=== PATIENT | male | born 1940 | race Caucasian/White ===

== ENCOUNTER → 2018-06-18 | Outpatient (CLI) | payer MEDICARE, BC ==
--- NOTE | 2018-06-20 14:26 | PCVCIMAG ---
APPROVED REPORT Study performed: 06/18/2018 15:01:59 EXAM: Comprehensive 2D, Doppler, and color-flow Echocardiogram Patient Location: Echo lab Status: routine BSA: 2.13 HR: 54 bpmBP: 128/70 mmHg Rhythm: First Degree AV Block Other Information Study Quality: Good Risk Factors: Cardiac Risk Factors: Hyperlipidemia Indications Congestive Heart Failure Cardiomyopathy Hypertension/HDD 2D Dimensions IVSd: 12.93 (7-11mm)LVOT Diam: 20.00 (18-24mm) LVDd: 47.09 mm PWd: 12.99 (7-11mm)Ascending Ao: 39.14 (22-36mm) LVDs: 28.93 (25-40mm) Left Atrium: 45.36 (27-40mm) Aortic Root: 33.75 mm LV Single Plane 4CH: 63.71 % LV Single Plane 2CH: 62.01 % Biplane EF: 61.2 % Volumes Left Atrial Volume (Systole) Single Plane 4CH: 57.66 mLSingle Plane 2CH: 68.67 mL LA ESV Index: 30.00 mL/m2 Aortic Valve AoV Peak Thuan.: 1.47 m/s AO Peak Gr.: 8.60 mmHgLVOT Max P.14 mmHg LVOT Max V: 1.02 m/s CHANG Vmax: 2.19 cm2 AI Vmax: 4.19 m/s AI Blackford: 1.31 m/s2 AI PHT: 930.96 ms Mitral Valve E/A Ratio: 0.6 MV Decel. Time: 277.29 ms MV E Max Thuan.: 0.58 m/s MV A Thuan.: 1.01 m/s IVRT: 62.28 ms TDI E/Lateral E': 8.29E/Medial E': 9.67 Medial E' Thuan.: 0.06 m/s Lateral E' Thuan.: 0.07 m/s Pulmonary Valve PV Peak Thuan.: 0.74 m/sPV Peak Gr.: 2.19 mmHg Pulmonary Vein P Vein S: 0.52 m/sP Vein A: 0.38 m/s P Vein D: 0.35 m/sP Vein A Dur.: 110.7 msec P Vein S/D Ratio: 1.49 Tricuspid Valve TR Peak Thuan.: 2.05 m/sRAP Estimate: 7.00 mmHg TR Peak Gr.: 16.81 mmHg PA Pressure: 24.00 mmHg Left Ventricle The left ventricle is normal size. There is normal LV segmental wall motion. Mild to moderate concentric left ventricular hypertrophy. Left ventricular systolic function is normal. LVEF is 65%. Grade I - abnormal relaxation pattern. Right Ventricle Right ventricle is at the upper limits of normal. The right ventricular systolic function is normal. Atria The left atrium size is normal. Right atrium is dilated. Aortic Valve The aortic valve is normal in structure. Mild aortic regurgitation. There is no aortic valvular stenosis. Mitral Valve The mitral valve is normal in structure. There is no mitral valve regurgitation noted. No evidence of mitral valve stenosis. Tricuspid Valve The tricuspid valve is normal in structure. Trace tricuspid regurgitation. Pulmonary artery pressure is 24 mmHg. Pulmonic Valve The pulmonary valve is normal in structure. Trace pulmonic regurgitation. Great Vessels The aortic root is normal in size. Ascending aorta is at upper limits of normal at 3.9 cm. IVC is normal in size and collapses >50% with inspiration. Pericardium There is no pericardial effusion. <Conclusion> The left ventricle is normal size. LVEF is 65%. Right ventricle is at the upper limits of normal. The aortic valve is normal in structure. Mild aortic regurgitation. The mitral valve is normal in structure. There is no mitral valve regurgitation noted. The tricuspid valve is normal in structure. Trace tricuspid regurgitation. Pulmonary artery pressure is 24 mmHg. The pulmonary valve is normal in structure. Trace pulmonic regurgitation. Ascending aorta is at upper limits of normal at 3.9 cm. There is no pericardial effusion.
--- NOTE | 2018-06-30 12:30 | PCVCIMAG ---
APPROVED REPORT Patient Location: Echo lab, Treadmill Stress Test Room #: Stress Nurse: Clare Zapien RN TEST: Treadmill Stress Test INDICATION: Cardiomyopathy, Hypertension, First degree AV Block The patient exercised accroding to the JEVON protocol for 4:11 min;s, achieving a work level of Max METS: 7.00. The resting heart rate of 51 bpm [place] to a maximal heart rate of 133 bpm. This value represents 93% of the maximal, age-predicted heart rate. The resting blood pressure of 128/70 mmHg, l[place] to a maximum blood pressure of 158/70 mmHg. The exercise test was stopped due to fatigue and dyspnea. There was an episode of self-limiting Atrial Fibrillation identified during stress. The patient was asymptomatic. Conclusion 1. Subjectively negative for ischemia 2. Electrocardiographically negative for ischemia 3. development of Atrial Fibrillation with exercise resolving with rest 4. Poor functional capacity
== END | disposition home or self-care (01) ==
LOC: PCVCIMAG 14:59
PROVIDERS: ATTEND Internal Medicine
DX: I35.1 Nonrheumatic aortic (valve) insufficiency (principal); I11.0 Hypertensive heart disease with heart failure; I50.9 Heart failure, unspecified; E78.5 Hyperlipidemia, unspecified; I44.0 Atrioventricular block, first degree; I42.8 Other cardiomyopathies
CPT/HCPCS: 93017; 93306

== ENCOUNTER → 2018-07-07 | Outpatient (CLI) | payer MEDICARE, BC | END | disposition home or self-care (01) | LOC: PCVCCLINIC 14:04 | PROVIDERS: ATTEND Internal Medicine | DX: I48.0 Paroxysmal atrial fibrillation (principal); I42.8 Other cardiomyopathies; I10 Essential (primary) hypertension; Z72.89 Other problems related to lifestyle | CPT/HCPCS: G0463 ==

== ENCOUNTER → 2019-02-01 | Outpatient (CLI) | payer MEDICARE, BC | END | disposition home or self-care (01) | LOC: PCVCCLINIC 13:15 | PROVIDERS: ATTEND Internal Medicine | DX: E78.5 Hyperlipidemia, unspecified (principal); I48.0 Paroxysmal atrial fibrillation; I10 Essential (primary) hypertension | CPT/HCPCS: 36415; 80061 ==